=== PATIENT | male | born 1990 | race Caucasian/White ===

== ENCOUNTER → 2019-04-12 | Outpatient (REF) | payer OTHER ==
[2019-04-12 12:41] LABS: SEMEN APPEARANCE OPAQUE (OPAQUE); SEMEN VISCOSITY LIQUID (LIQUID); SEMEN VOLUME 2.7 ml (2.0-5.0); SEMEN pH 8.5 (7.0-8.0)
[2019-04-12 12:42] LABS: SPERM CONCENTRATION 57.9 M/ml (>=15.0); WBC CONCENTRATION <=1 M/ml (<=1 M/ml)
== END ==
LOC: M LAB REF 12:38
PROVIDERS: ATTEND Obstetrics & Gynecology Reproductive Endocrinology
DX: N46.9 Male infertility, unspecified (principal)

== ENCOUNTER 2022-05-11 20:27 | Inpatient (IN) | payer OTHER ==
[~2022-05-11] VITALS: Ht 165.1 cm; Wt 68.2 kg
[2022-05-11 21:14] LABS: HEMOGLOBIN 14.7 g/dl (13.5-17.5); MEAN CORPUSCULAR HEMOGLOBIN 30.8 pg (27.0-33.0); MEAN CORPUSCULAR VOLUME 87.9 fl (80.0-96.0); PLATELET COUNT, AUTOMATED 377 10^3/uL (150-450); RED BLOOD COUNT 4.78 10^6/uL (4.30-6.10); WHITE BLOOD COUNT 20.4 10^3/uL (4.0-10.0)
[2022-05-11 22:06] LABS: ACETAMINOPHEN LEVEL < 2.0 UG/ML (10.0-30.0); ALBUMIN 4.8 GM/DL (3.2-5.2); ALT/SGPT 27 U/L (12-78); BILIRUBIN,DIRECT 0.1 MG/DL (0.0-0.2); BILIRUBIN,TOTAL 0.6 MG/DL (0.2-1.0); BLOOD UREA NITROGEN 16 MG/DL (7-18); CALCIUM LEVEL 9.6 MG/DL (8.5-10.1); CARBON DIOXIDE LEVEL 18 MEQ/L (21-32); CHLORIDE LEVEL 107 MEQ/L (98-107); CREATININE FOR GFR 1.35 MG/DL (0.70-1.30); ETHYL ALCOHOL (ETHANOL) 0.128 % (0.000-0.010); GLOMERULAR FILTRATION RATE > 60.0 (>60); GLUCOSE, FASTING 85 MG/DL (70-100); POTASSIUM SERUM 4.3 MEQ/L (3.5-5.1); SALICYLATE LEVEL < 1.7 MG/DL (5.0-30.0); SODIUM LEVEL 142 MEQ/L (136-145); TOTAL PROTEIN 8.4 GM/DL (6.4-8.2)
[2022-05-11 22:10] LABS: RSV AMPLIFICATION NEGATIVE (NEGATIVE)
[2022-05-11 23:28] LABS: AMPHETAMINES LEVEL URINE POSITIVE (NEGATIVE); BARBITURATES URINE NEGATIVE (NEGATIVE); BENZODIAZEPINES URINE NEGATIVE (NEGATIVE); CANNABINOIDS URINE POSITIVE (NEGATIVE); COCAINE METABOLITE URINE NEGATIVE (NEGATIVE); METHADONE URINE NEGATIVE (NEGATIVE); OPIATES URINE NEGATIVE (NEGATIVE); PHENCYCLIDINE URINE NEGATIVE (NEGATIVE)
[2022-05-12] MEDS ORDERED: FLUO40CA PO (06:09)
[2022-05-12] MEDS ORDERED: HYDR-643 PO (06:09)
[2022-05-12] MEDS ORDERED: ADDE20CA3 PO (06:09)
[2022-05-12] MEDS ORDERED: HOME MED LIST COMPLETE! XX SCH (06:10)
[2022-05-12] MEDS ORDERED: AMPHETAMINE/DEXTROAMPHETAMINE 5 MG *ER* CAPSULE (ADDERALL XR) PO SCH (09:00)
[2022-05-12] MEDS ORDERED: FLUoxetine 20MG CAP PO SCH (09:00)
[2022-05-12 10:33] LABS: HEMATOCRIT 41.1 % (42.0-52.0); HEMOGLOBIN 14.4 g/dl (13.5-17.5); MEAN CORPUSCULAR HEMOGLOBIN 31.6 pg (27.0-33.0); MEAN CORPUSCULAR VOLUME 90.1 fl (80.0-96.0); PLATELET COUNT, AUTOMATED 329 10^3/uL (150-450); RED BLOOD COUNT 4.56 10^6/uL (4.30-6.10); WHITE BLOOD COUNT 7.7 10^3/uL (4.0-10.0)
[2022-05-12 10:56] LABS: BLOOD UREA NITROGEN 20 MG/DL (7-18); CALCIUM LEVEL 9.7 MG/DL (8.5-10.1); CARBON DIOXIDE LEVEL 23 MEQ/L (21-32); CHLORIDE LEVEL 105 MEQ/L (98-107); CREATININE FOR GFR 1.14 MG/DL (0.70-1.30); GLOMERULAR FILTRATION RATE > 60.0 (>60); GLUCOSE, FASTING 109 MG/DL (70-100); POTASSIUM SERUM 4.7 MEQ/L (3.5-5.1); SODIUM LEVEL 140 MEQ/L (136-145)
[2022-05-12] MEDS ORDERED: MOM 30ML SUSPENSION UDC PO PRN (21:20)
[2022-05-12] MEDS ORDERED: NICOTINE 21MG/24HR 1 EA TRANSDERMAL TD PRN (21:20)
[2022-05-12] MEDS ORDERED: traZODone 50 MG TAB PO PRN (21:20)
[2022-05-12] MEDS ORDERED: ACETAMINOPHEN TAB 650MG DOSE (2X325MG) PO PRN (21:20)
[2022-05-12] MEDS ORDERED: MAALOX 30 ML SUSP *UDC PO PRN (21:20)
[2022-05-12 23:09] VITALS: BP 128/71
[2022-05-13 06:57] VITALS: BP 117/65
[2022-05-13 08:19] VITALS: BP 117/65
[2022-05-13] MEDS ORDERED: FLUoxetine 20MG CAP PO SCH (09:00)
[2022-05-13] MEDS: AMPHETAMINE/DEXTROAMPHETAMINE 5 MG *ER* CAPSULE (ADDERALL XR) PO SCH (09:48)
[2022-05-13 18:37] VITALS: BP 124/70
[2022-05-14 06:53] VITALS: BP 126/80
[2022-05-14] MEDS: AMPHETAMINE/DEXTROAMPHETAMINE 5 MG *ER* CAPSULE (ADDERALL XR) PO SCH (08:48)
[2022-05-14] MEDS: FLUoxetine 20MG CAP PO SCH (08:48)
[2022-05-14 18:58] VITALS: BP 121/76
[2022-05-14 19:30] VITALS: BP 121/76
[2022-05-15 06:00] VITALS: BP 108/55
[2022-05-15 07:02] VITALS: BP 108/55
[2022-05-15] MEDS: AMPHETAMINE/DEXTROAMPHETAMINE 5 MG *ER* CAPSULE (ADDERALL XR) PO SCH (08:20)
[2022-05-15] MEDS: FLUoxetine 20MG CAP PO SCH (08:21)
[2022-05-15 17:48] VITALS: BP 136/79
[2022-05-16 06:58] VITALS: BP 108/55
[2022-05-16] MEDS: FLUoxetine 20MG CAP PO SCH (09:14)
[2022-05-16] MEDS: AMPHETAMINE/DEXTROAMPHETAMINE 5 MG *ER* CAPSULE (ADDERALL XR) PO SCH (09:14)
[2022-05-16 18:45] VITALS: BP 132/76
[2022-05-17 07:03] VITALS: BP 109/55
[2022-05-17] MEDS: AMPHETAMINE/DEXTROAMPHETAMINE 5 MG *ER* CAPSULE (ADDERALL XR) PO SCH (08:28)
[2022-05-17] MEDS: FLUoxetine 20MG CAP PO SCH (08:28)
[2022-05-20] MEDS ORDERED: PROZ20CA11 PO (11:13)
[2022-05-20] MEDS ORDERED: PROZ40CA PO (11:13)
[2022-05-20] MEDS ORDERED: HYDR-3363 PO (11:13)
== END 2022-05-17 10:58 | disposition home or self-care (01) | DRG 885 ==
LOC: M ED 20:27 → M ED INP 05-12 21:16 → M PSY 05-12 22:27
PROVIDERS: ADMIT Psychiatry & Neurology Psychiatry; ATTEND Psychiatry & Neurology Psychiatry
DX: F33.2 Major depressive disorder, recurrent severe without psychotic features (principal); R45.851 Suicidal ideations; Z20.822 Contact with and (suspected) exposure to COVID-19; F90.9 Attention-deficit hyperactivity disorder, unspecified type; Z79.899 Other long term (current) drug therapy; Z63.5 Disruption of family by separation and divorce